=== PATIENT | female | born 1990 | race Caucasian/White ===

== ENCOUNTER 2017-04-09 10:56 | Emergency (ER) | payer MEDICAID ==
[~2017-04-09] VITALS: Ht 160 cm; Wt 45.4 kg
[~2017-04-09 10:56] MED LIST: ACETAMINOPHEN-1 EAC1 PO; AMOXICILLIN500 M1 PO; FLAGYL500 MG PO; NORCO 5-325 TA1 EACH PO; TRAMADOL 50 MG50 MG; ZOFRAN4 MG PO
[2017-04-09 11:48] LABS: URINE BILIRUBIN NEGATIVE (Negative); URINE BLOOD NEGATIVE (Negative); URINE CLARITY CLEAR; URINE COLOR YELLOW; URINE GLUCOSE-RANDOM NEGATIVE (Negative); URINE KETONES NEGATIVE (Negative); URINE LEUKOCYTES-REFLEX NEGATIVE (Negative); URINE NITRITE-REFLEX NEGATIVE (Negative); URINE PROTEIN NEGATIVE (Negative); URINE SPECIFIC GRAVITY <= 1.005 (1.005-1.030); URINE UROBILINOGEN 0.2 E.U./dl (0.2-1.0)
[2017-04-09 11:50] LABS: ABSOLUTE EOSINOPHILS 0.2 thou/uL (0.0-0.7); ABSOLUTE LYMPHOCYTES 1.7 thou/uL (0.8-5.3); ABSOLUTE MONOCYTES 0.4 thou/uL (0.0-1.2); ABSOLUTE NEUTROPHILS 5.4 thou/uL (1.6-8.1); BASOPHILS 0.5 %; EOSINOPHILS 2.8 %; HEMATOCRIT 39.6 % (37.0-47.0); HEMOGLOBIN 13.4 gm/dL (12.0-15.0); LYMPHOCYTES 22.4 %; MCH 29.6 pg (26.0-34.0); MCHC 33.7 g/dL (28.0-37.0); MCV 87.7 fL (80.0-100.0); MONOCYTES 5.5 %; MPV 8.5 fl. (7.2-11.1); NUCLEATED RBCS 0 /100WBC; PLATELET COUNT* 223 thou/uL (150-400); POLYS 68.8 %; RBC 4.52 mil/uL (4.20-5.00); RDW-CV 14.4 % (10.5-14.5); WBC 7.8 thou/uL (4.0-11.0)
[2017-04-09 11:58] LABS: CALCIUM 8.4 mg/dL (8.5-10.1); CREATININE 0.7 mg/dL (0.6-1.3); POTASSIUM 3.8 mmol/L (3.5-5.1)
[2017-04-09 13:40] VITALS: BP 90/54
--- NOTE | 2017-04-10 12:44 | EKG ---
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 : 1990 Requested By: Sam Sparks Order Number: [id number] MD: Georges Camargo Measurements Intervals [place] Rate: 83 P: 268 [place]: 142 QRS: 2 QRSD: 97 T: -79 QT: 376 QTc: 442 Interpretive Statements Sinus rhythm RSR' in V1 or V2, probably normal variant Nonspecific T abnormalities, inferior leads Compared to ECG 11/16/2016 18:06:27 RSR' in V1 or V2 now present T-wave abnormality now present Electronically Signed On 04-10-2017 12:44:40 CLOTHING CUTTER by Georges Camargo [email or web address] <ELECTRONICALLY SIGNED> By: Georges Camargo MD, FACC 04/10/17 1244 1136 [id number] Georges Camargo MD, [facility] /EPI
== END 2017-04-09 13:41 | disposition home or self-care (01) ==
LOC: M.ERS 10:56
PROVIDERS: Nurse Practitioner Family
DX: O26.891 Other specified pregnancy related conditions, first trimester (principal); R42 Dizziness and giddiness; K31.84 Gastroparesis; F17.200 Nicotine dependence, unspecified, uncomplicated; Z88.6 Allergy status to analgesic agent; Z88.0 Allergy status to penicillin; Z3A.01 Less than 8 weeks gestation of pregnancy

== ENCOUNTER 2017-08-25 11:50 | Emergency (ER) | payer OTHER, MEDICAID ==
[~2017-08-25] VITALS: Ht 160 cm; Wt 50.8 kg
[2017-08-25 11:58] VITALS: BP 139/73
[2017-08-25 12:09] LABS: URINE BILIRUBIN NEGATIVE (Negative); URINE BLOOD NEGATIVE (Negative); URINE CLARITY CLEAR; URINE COLOR YELLOW; URINE GLUCOSE-RANDOM NEGATIVE (Negative); URINE KETONES NEGATIVE (Negative); URINE LEUKOCYTES-REFLEX NEGATIVE (Negative); URINE NITRITE-REFLEX NEGATIVE (Negative); URINE PROTEIN NEGATIVE (Negative); URINE SPECIFIC GRAVITY <= 1.005 (1.005-1.030); URINE UROBILINOGEN 0.2 E.U./dl (0.2-1.0)
== END 2017-08-25 12:21 | disposition home or self-care (01) ==
LOC: M.ERS 11:50
PROVIDERS: Nurse Practitioner Family
DX: O26.892 Other specified pregnancy related conditions, second trimester (principal); R10.2 Pelvic and perineal pain; O99.332 Smoking (tobacco) complicating pregnancy, second trimester; Z86.14 Personal history of Methicillin resistant Staphylococcus aureus infection; Z3A.26 26 weeks gestation of pregnancy; Z88.0 Allergy status to penicillin; Z88.6 Allergy status to analgesic agent

== ENCOUNTER 2017-11-17 14:07 | Emergency (ER) | payer OTHER, MEDICAID ==
[~2017-11-17] VITALS: Ht 160 cm; Wt 48.1 kg
[2017-11-17 15:07] LABS: ABSOLUTE EOSINOPHILS 0.1 thou/uL (0.0-0.7); ABSOLUTE LYMPHOCYTES 1.2 thou/uL (0.8-5.3); ABSOLUTE MONOCYTES 0.2 thou/uL (0.0-1.2); ABSOLUTE NEUTROPHILS 2.3 thou/uL (1.6-8.1); BASOPHILS 1.1 %; EOSINOPHILS 3.7 %; HEMATOCRIT 41.3 % (37.0-47.0); HEMOGLOBIN 13.6 gm/dL (12.0-15.0); LYMPHOCYTES 30.1 %; MCH 28.9 pg (26.0-34.0); MCV 87.5 fL (80.0-100.0); MPV 8.8 fl. (7.2-11.1); NUCLEATED RBCS 0 /100WBC; PLATELET COUNT* 184 thou/uL (150-400); POLYS 59.1 %; RBC 4.72 mil/uL (4.20-5.00); RDW-CV 13.2 % (10.5-14.5); WBC 3.9 thou/uL (4.0-11.0)
[2017-11-17 15:25] LABS: CREATININE 0.7 mg/dL (0.6-1.3); POTASSIUM 3.6 mmol/L (3.5-5.1)
[2017-11-17 15:27] LABS: ALBUMIN 3.9 g/dL (3.4-5.0); TOTAL BILIRUBIN 0.7 mg/dL (<0.1-1.0); TOTAL PROTEIN 7.7 g/dL (6.4-8.2)
[2017-11-17 15:35] LABS: URINE BILIRUBIN NEGATIVE (Negative); URINE BLOOD TRACE (Negative); URINE CLARITY CLEAR; URINE COLOR YELLOW; URINE GLUCOSE-RANDOM NEGATIVE (Negative); URINE KETONES 1+ (Negative); URINE LEUKOCYTES-REFLEX NEGATIVE (Negative); URINE NITRITE-REFLEX NEGATIVE (Negative); URINE PROTEIN NEGATIVE (Negative); URINE UROBILINOGEN 0.2 E.U./dl (0.2-1.0)
[2017-11-17 15:40] VITALS: BP 111/79
== END 2017-11-17 16:02 | disposition home or self-care (01) ==
LOC: M.ERS 14:07
PROVIDERS: Physician Assistant Surgical
DX: M79.605 Pain in left leg (principal); Z86.14 Personal history of Methicillin resistant Staphylococcus aureus infection; Z98.890 Other specified postprocedural states; Z88.0 Allergy status to penicillin; Z88.6 Allergy status to analgesic agent; Z88.8 Allergy status to other drugs, medicaments and biological substances

== ENCOUNTER 2018-03-08 19:17 | Emergency (ER) | payer OTHER, MEDICAID ==
[~2018-03-08] VITALS: Ht 160 cm; Wt 45.8 kg
[2018-03-08 19:41] LABS: ABSOLUTE BASOPHILS 0.1 thou/uL (0.0-0.2); ABSOLUTE EOSINOPHILS 0.2 thou/uL (0.0-0.7); ABSOLUTE LYMPHOCYTES 1.8 thou/uL (0.8-5.3); ABSOLUTE MONOCYTES 0.3 thou/uL (0.0-1.2); ABSOLUTE NEUTROPHILS 3.5 thou/uL (1.6-8.1); BASOPHILS 0.9 %; EOSINOPHILS 3.1 %; HEMATOCRIT 42.1 % (37.0-47.0); LYMPHOCYTES 30.8 %; MCH 28.9 pg (26.0-34.0); MCHC 33.1 g/dL (28.0-37.0); MCV 87.1 fL (80.0-100.0); MONOCYTES 5.8 %; MPV 8.9 fl. (7.2-11.1); NUCLEATED RBCS 0 /100WBC; PLATELET COUNT* 219 thou/uL (150-400); POLYS 59.4 %; RBC 4.83 mil/uL (4.20-5.00); RDW-CV 14.2 % (10.5-14.5); WBC 5.9 thou/uL (4.0-11.0)
[2018-03-08 19:49] LABS: ANION GAP 16 mmol/L (7-16); BUN 9 mg/dL (7-18); CALCIUM 9.7 mg/dL (8.5-10.1); CHLORIDE 100 mmol/L (98-107); CO2 26 mmol/L (21-32); CREATININE 0.8 mg/dL (0.6-1.3); GLUCOSE 101 mg/dL (70-99); SODIUM 142 mmol/L (136-145)
[2018-03-08 20:02] LABS: ALBUMIN 4.5 g/dL (3.4-5.0); ALKALINE PHOSPHATASE 62 U/L (46-116); LIPASE 293 U/L (73-393); NT-PRO BRAIN NAT PEPTIDE 46 pg/mL (<300); SGOT 14 U/L (15-37); SGPT 27 U/L (30-65); TOTAL BILIRUBIN 0.7 mg/dL (<0.1-1.0); TOTAL PROTEIN 8.2 g/dL (6.4-8.2); TROPONIN-I LEVEL <0.06 ng/mL (<0.06)
[2018-03-08] MEDS ORDERED: ZOFRAN ODT4 MG DISSOLVE (21:51)
[2018-03-08 22:44] VITALS: BP 95/51
--- NOTE | 2018-03-09 10:15 | EKG ---
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 : 1990 Requested By: Geronimo Bates Order Number: [id number] MD: Seferino Forrest Measurements Intervals [place] Rate: 103 P: 83 [place]: 130 QRS: -8 QRSD: 98 T: 45 QT: 340 QTc: 445 Interpretive Statements Sinus tachycardia Borderline T abnormalities, anterior leads Compared to ECG 04/09/2017 11:36:18 Sinus rhythm no longer present T-wave abnormality still prominent Electronically Signed On 03-09-2018 10:14:59 CARPET MEASURER by Seferino Forrest [email or web address] <ELECTRONICALLY SIGNED> By: Seferino Forrest MD, [facility] 03/09/18 1014 24 Seferino Forrest MD, FAC /EPI
--- NOTE | 2018-03-09 10:17 | EKG ---
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
== END 2018-03-08 22:44 | disposition home or self-care (01) ==
LOC: M.ERS 19:17
PROVIDERS: Emergency Medicine Emergency Medical Services
DX: R07.89 Other chest pain (principal); K31.84 Gastroparesis; Z98.890 Other specified postprocedural states; Z88.0 Allergy status to penicillin; Z88.6 Allergy status to analgesic agent; Z88.8 Allergy status to other drugs, medicaments and biological substances